=== PATIENT | female | born 1995 | race Caucasian/White ===

== ENCOUNTER 2019-04-13 12:29 | Emergency (ER) | payer OTHER ==
[2019-04-13 12:45] VITALS: BP 132/71
[2019-04-13] MEDS ORDERED: BUFFERED LIDOCAINE 10 ML SYRINGE SUBQ STA (14:30)
[2019-04-13] MEDS ORDERED: TETANUS/DIPHTHERIA/PERTUSSIS 0.5 ML SYRINGE IM ONE (14:30)
--- NOTE | 2019-04-13 14:31 | ED Physician Documentation ---
PD HPI UPPER EXT INJURY - Stated complaint Stated Complaint: RT INDEX FINGER LAC - Chief complaint Chief Complaint: Laceration - History obtained from History obtained from: Patient - History of Present Illness Location: Right (She was cleaning a knife at work and cut her right index finger) Timing - onset: Today Review of Systems Constitutional: reports: Reviewed and negative Nose: reports: Reviewed and negative Cardiac: reports: Reviewed and negative PD PAST MEDICAL HISTORY - Past Medical History Past Medical History: Yes Other Past Medical History: Clotting disorder - Past Surgical History Past Surgical History: Yes Ortho: Other - Allergies Allergies/Adverse Reactions: Allergies Allergy/AdvReac Type Severity Reaction Status Date / Time No Known Drug Allergies Allergy Verified 04/13/19 12:33 - Social History Does the pt smoke?: No Smoking Status: Never smoker Does the pt drink ETOH?: Yes ETOH Use: Wine Substance Use and Type: Marijuana - Immunizations Immunizations are current?: No PD ED PE NORMAL - Vitals Vital signs reviewed: Yes - General General: Alert and oriented X 3, No acute distress - Extremities Extremities: Other (1 cm laceration in the subcutaneous tissue on the radial side of the right index finger, distal phalanx just proximal to the nailbed, no nailbed damage, full range of motion. Normal neurovascular status.) - Neuro Neuro: Alert and oriented X 3, Normal speech Results - Vitals Vitals: Vital Signs - 24 hr 04/13/19 12:33 Temperature 36.5 C Heart Rate 66 Respiratory 14 Rate Blood Pressure 132/71 H O2 Saturation 100 Procedures - Laceration (location) R 2nd finger Length in cm: 1 Wound type: Linear, Superficial Neurovascular status: Sensory intact, Motor intact, Vascular intact Anesthesia: Lidocaine 1%, With bicarb (dig block) Wound Preparation: Irrigated copiously NS Skin layer closure: Nylon, Interrupted (2), Size #-0 - enter number (5-0), Sutures - enter # (2) Other: Tetanus booster given Complexity: Simple Departure - Departure Disposition: 01 Home, Self Care Clinical Impression: Laceration Condition: Good Record reviewed to determine appropriate education?: Yes Instructions: ED Laceration Hand Comments: Come back for any signs of infection which would include: Redness, swelling, drainage, increased pain, or fevers. You can wash it soap and water. Keep it covered and moist with bacitracin ointment which is available over the counter; avoid neosporin. Follow-up with your physician in 14 days for suture removal. Forms: Activity restrictions Discharge Date/Time: 04/13/19 15:15
== END 2019-04-13 15:15 | disposition home or self-care (01) ==
LOC: ED 12:29
DX: S61.210A Laceration without foreign body of right index finger without damage to nail, initial encounter (principal); W26.0XXA Contact with knife, initial encounter; Y99.0 Civilian activity done for income or pay
CPT/HCPCS: 12001; 90471

== ENCOUNTER 2020-04-24 07:53 | Outpatient (CLI) | payer OTHER, MEDICAID ==
--- NOTE | 2020-04-24 13:03 | Ultrasound Report ---
PROCEDURE: OB Biophysical Profile INDICATIONS: POST DATES OUTSIDE/PRIOR DATING DATA: Last menstrual period (LMP): 07/09/2019. LMP-based estimated date of delivery (JESSICA): 04/14/2020. First dating scan (date and location): [place] 11/21/2019. Estimated date of delivery (JESSICA) from first dating scan: 04/14/2020 as stated by provider. Previously noted ultrasound JESSICA according to prior report is 04/15/2020. TECHNIQUE: Real-time scanning was performed of the fetus, with image documentation and biometric fadi surements. Biophysical profile was also obtained. COMPARISON: OB ultrasound 11/21/2019 FINDINGS: General: A single living intrauterine gestation is present. Presentation: Vertex Placenta: Placental position is anterior, without previa. Calcifications are present. Amniotic fluid index: 4.7 cm, less than 1st percentile for gestational age. Largest pocket 2.0 cm. heart rate: 140 beats per minute. Maternal cervical canal: Not evaluated Biophysical profile: Tone: 2 points. Movement: 2 points. Respiration: 0 points. Largest pocket of fluid: 2 points. Umbilical artery Doppler: 2.8, 2.2, 1.8, 1.9. IMPRESSION: 1. Single live intrauterine patency with ultrasound gestational age of 41 weeks 3 days. 2. HARESH is less than the 1st percentile. 3. BPP 6 out of 8. Reviewed by: Anushka Boston MD on 04/24/2020 1:02 PM PST Approved by: Anushka Boston MD on 04/24/2020 1:02 PM PST Station ID: [id number]
== END 2020-04-24 07:54 | disposition home or self-care (01) ==
LOC: DI 07:53
PROVIDERS: ATTEND Midwife
DX: Z36.83 Encounter for fetal screening for congenital cardiac abnormalities (principal); Z3A.41 41 weeks gestation of pregnancy